=== PATIENT | female | born 1970 | race Caucasian/White ===

== ENCOUNTER 2020-10-22 21:16 | Emergency (ER) | payer OTHER, SELFPAY ==
--- NOTE | 2020-10-22 21:21 | XRR_ITS ---
PROCEDURE INFORMATION: Exam: XR Chest Exam date and time: 10/22/2020 9:21 PM Age: 50 years old Clinical indication: Cough and fever and shortness of breath; Additional info: SOB, cough, fever, covid + TECHNIQUE: Imaging protocol: XR of the chest. Views: 1 view. COMPARISON: MRI Cervical Spine w/o* [id number] 02/06/2019 11:38 AM FINDINGS: Lungs: Unremarkable. No consolidation. Pleural spaces: Unremarkable. No pleural effusion. No pneumothorax. Heart/Mediastinum: Unremarkable. No cardiomegaly. Bones/joints: Unremarkable. XR/XR chest 1V portable [id number] IMPRESSION: No acute findings.
--- NOTE | 2020-10-22 21:29 | ECG_ITS ---
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 Measurements Intervals [place] Rate: 106 P: 32 CT: 128 QRS: 11 QRSD: 81 T: 43 QT: 306 QTc: 407 Interpretive Statements SINUS TACHYCARDIA POSSIBLE LEFT ATRIAL ENLARGEMENT [-0.1mV P WAVE IN V1/V2] LOW QRS VOLTAGE IN PRECORDIAL LEADS [QRS DEFLECTION < 1.0 mV IN CHEST LEADS] Compared to ECG 02/21/2014 09:09:41 Low QRS voltage now present Sinus rhythm no longer present Electronically Signed On 10-23-2020 9:52:56 CDT by Kiki Davies M.D. [id number]
--- NOTE | 2020-10-22 21:31 | W.ED.SOB ---
HPI - SOB/Dyspnea General: Chief Complaint: COVID symptoms Stated Complaint: sob, covid positive Time Seen by Provider: 10/22/20 21:24 Source: patient Mode of arrival: ambulatory Limitations: no limitations History of Present Illness: HPI Narrative: 50-year-old female who had Covid 3 weeks ago and has passed her Covid. States that starting last 2 days she has developed fever headache cough and some shortness of breath. States that any exertion makes her dyspnea worse. She denies any chest pain. Subjective fevers no fever documented. Denies any vomiting or diarrhea. Patient is well-appearing here in no respiratory distress. Associated symptoms: Reports fever(s); Deny abdominal pain, chest pain, nausea or vomiting Review of Systems Const: Reports: fever(s) Eyes: Denies: blurry vision or eye discomfort ENMT: Denies: throat pain or dental pain Card: Denies: chest pain Resp: Reports: dyspnea and non-productive cough GI: Denies: abdominal pain, nausea, vomiting or diarrhea : Denies: dysuria Musc: Denies: neck pain or back pain Skin/Breast: Denies: rash Neuro: Reports: headache(s) Psych: Denies: depression Renzo/Lymph: Denies: easy bruising All/Imm: Denies: urticaria PFSH ED PFSH: Medical History Cervical disc disorder with myelopathy of mid-cervical region Surgical History H/O cervical spine surgery 11/20/2009 Dr. Manuel Montes De Oca: C4-C5, C5-C6 ACDFF Family History Mother Hypertension Diabetes Grandmother Hypertension Diabetes Social History Smoking and tobacco status: current every day smoker Alcohol intake: never Lives independently: Yes Household members: spouse Housing: House Marital status: service: No Current occupational status: employed Current occupation: [employer] in [employer] History of recent travel: No Physical Exam Const: COMMON NORMALS: no acute distress, patient oriented x3 and healthy appearing HENMT: COMMON NORMALS: normocephalic and atraumatic HEAD & SCALP: normocephalic and atraumatic Eye: COMMON NORMALS: Equal, round and reactive pupils present and EOMs intact bilaterally PUPIL: Yes Equal, round and reactive pupils present Neck/C-Spine: COMMON NORMALS: full ROM and supple Chest: COMMONS NORMALS: normal inspection of the chest and normal palpation of entire chest wall Resp: COMMON NORMALS: normal respiratory effort, No retractions, No use of accessory muscles and clear to auscultation bilaterally AUSCULTATION: clear to auscultation bilaterally Cardio: COMMON NORMALS: regular rate, regular rhythm and No murmurs present (Cardio) RATE: regular rate RHYTHM: regular rhythm GI: COMMON NORMALS: Normal to inspection, nondistended, normoactive bowel sounds present, Soft to palpation, non-tender and no masses PALPATION: Yes Soft to palpation Extremity: COMMON NORMALS: normal to inspection and full ROM Neuro: COMMON NORMALS: patient oriented x3, moves all extremities and no focal motor deficits Psych: COMMON NORMALS: mental status grossly normal, Normal thought process present and cooperative THOUGHT PROCESS: Normal thought process present Skin: COMMON NORMALS: no rashes or lesions noted and no wounds GENERAL SKIN EXAM: no rashes or lesions noted Course Vital Signs: Vital signs: Vital Signs Temperature 100.1 F H 10/22/20 23:27 Pulse Rate 105 H 10/22/20 23:46 Respiratory Rate 16 10/23/20 00:32 Blood Pressure 133/80 10/23/20 00:32 Pulse Oximetry 96 10/23/20 00:32 MDM - SOB/Dyspnea MDM Narrative: Medical decision making narrative: Patient presents here with a post Covid pneumonitis. Could still be viral versus bacterial. We will start her on doxycycline. She has an inhaler at home. She is well-appearing here and is not hypoxic. She is stable for discharge. CT shows no signs of pulmonary Alloy. Patient prescribed doxycycline and is to follow-up with her PCP and return if worsening. She understands agrees this plan. Lab Data: Labs: Lab Results 10/22/20 10/22/20 10/22/20 Range/Units 22:00 22:00 22:00 WBC 14.4 H (4.0-10.0) 10^3/ uL RBC 5.47 H (4.1-5.3) 10^6/u L Hgb 15.9 H (11.5-15.3) g/dL Hct 46.7 (37.0-47.0) % MCV 85.4 (81-99) fL MCH 29.1 (28.0-34.0) pg MCHC 34.0 (30.0-36.0) g/dL RDW 12.4 (12.1-15.1) % Plt Count 262 (130-400) 10^3/c mm MPV 9.1 (7.4-10.4) fL Neut % (Auto) 83.7 % Lymph % (Auto) 8.9 % Luna % (Auto) 4.8 % Eos % (Auto) 0.1 % Baso % (Auto) 0.2 % Neut # (Auto) 12.10 H (1.8-7.7) 10^3/u L Lymph # (Auto) 1.3 (0.8-4.8) 10^3/u L Luna # (Auto) 0.7 (0.2-0.9) 10^3/u L Eos # (Auto) 0.0 (0.0-0.8) 10^3/u L Baso # (Auto) 0.0 (0.0-0.1) 10^3/u L Nucleated RBC % (a uto) 0 % Nucleated RBCs # 0.0 /100WBC D-Dimer 0.74 H (0-0.59) ug/mIFE U Sodium 131 L (136-145) mmol/L Potassium 4.3 (3.5-5.1) mmol/L Chloride 92 L (98-107) mmol/L Carbon Dioxide 25 (22-29) mmol/L Anion Gap 18.3 (5-19) BUN 11 (6-20) mg/dL Creatinine 0.5 (0.5-0.9) mg/dL GFR Calculation 131.1 H (90-130) mL/min Glucose 187 H (65-115) mg/dL Calculated Osmolal ity 276 L (285-295) mOsm/k g Lactic Acid (0.5-2.2) mmol/L Calcium 8.3 L (8.5-10.5) mg/dL Total Bilirubin 0.4 (0.15-1.2) mg/dL AST 18 (0-32) U/L ALT 43 H (0-33) U/L Alkaline Phosphata se 91 (35-105) IU/L C-Reactive Protein 109.7 H (0.0-4.9) mg/L NT-Pro-B Natriuret Pep 223 H (0-125) pg/mL Total Protein 5.6 L (6.6-8.7) g/dL Albumin 3.6 (3.5-5.2) g/dL Globulin 2.0 (1.3-4.6) g/dL 10/22/20 Range/Units 22:00 WBC (4.0-10.0) 10^3/ uL RBC (4.1-5.3) 10^6/u L Hgb (11.5-15.3) g/dL Hct (37.0-47.0) % MCV (81-99) fL MCH (28.0-34.0) pg MCHC (30.0-36.0) g/dL RDW (12.1-15.1) % Plt Count (130-400) 10^3/c mm MPV (7.4-10.4) fL Neut % (Auto) % Lymph % (Auto) % Luna % (Auto) % Eos % (Auto) % Baso % (Auto) % Neut # (Auto) (1.8-7.7) 10^3/u L Lymph # (Auto) (0.8-4.8) 10^3/u L Luna # (Auto) (0.2-0.9) 10^3/u L Eos # (Auto) (0.0-0.8) 10^3/u L Baso # (Auto) (0.0-0.1) 10^3/u L Nucleated RBC % (a uto) % Nucleated RBCs # /100WBC D-Dimer (0-0.59) ug/mIFE U Sodium (136-145) mmol/L Potassium (3.5-5.1) mmol/L Chloride (98-107) mmol/L Carbon Dioxide (22-29) mmol/L Anion Gap (5-19) BUN (6-20) mg/dL Creatinine (0.5-0.9) mg/dL GFR Calculation (90-130) mL/min Glucose (65-115) mg/dL Calculated Osmolal ity (285-295) mOsm/k g Lactic Acid 1.9 (0.5-2.2) mmol/L Calcium (8.5-10.5) mg/dL Total Bilirubin (0.15-1.2) mg/dL AST (0-32) U/L ALT (0-33) U/L Alkaline Phosphata se (35-105) IU/L C-Reactive Protein (0.0-4.9) mg/L NT-Pro-B Natriuret Pep (0-125) pg/mL Total Protein (6.6-8.7) g/dL Albumin (3.5-5.2) g/dL Globulin (1.3-4.6) g/dL Imaging Data^: CT Chest: Attestation: I personally reviewed and interpreted this imaging study as follows: Radiologist's impression: [address] [place] [id number] Scan Report Signed Patient: Sarah Grullon Unit #: [id number] : 1970 Age/Sex: 50 / F ADM Date: 10/22/20 Loc: ER Room/Bed: Attending Dr: Ordering Provider/Ordering MD: Mac Smallwood MD Date of Service: 10/22/20 Procedure(s): CT angio chest PE protcl [id number] Accession Number(s): [id number] Report Number: [id number] PROCEDURE INFORMATION: Exam: CTA Chest With Contrast Exam date and time: 10/22/2020 10:59 PM Age: 50 years old Clinical indication: Cough and shortness of breath; Additional info: SOB, cough, covid + TECHNIQUE: Imaging protocol: Computed tomographic angiography of the chest with contrast. 3D rendering (Not supervised by radiologist): MIP and/or 3D reconstructed images were created by the technologist. Radiation optimization: All CT scans at this facility use at least one of these dose optimization techniques: automated exposure control; mA and/or kV adjustment per patient size (includes targeted exams where dose is matched to clinical indication); or iterative reconstruction. Contrast material: OMNI 350; Contrast volume: 111 ml; Contrast route: INTRAVENOUS (IV); COMPARISON: CR (CHEST, ) 10/22/2020 10:36 PM RADIATION DOSE METRICS: Total DLP (mGy-cm): 1442.97 FINDINGS: Limitations: Suboptimal/less than robust opacification the pulmonary arterial tree. Pulmonary arteries: Evaluation of the pulmonary arteries is limited due to the poor contrast and some areas of streak artifact, especially the distal pulmonary arteries. No large or central pulmonary emboli are demonstrated on this examination. Aorta: There is no thoracic aortic aneurysm or dissection. Lungs: There are some patchy rounded ground-glass opacities and consolidations in both lungs, more on the left than on the right and mostly sparing the upper lungs consistent with the given clinical history of COVID-19 infection. Pleural spaces: Unremarkable. No pneumothorax. No pleural effusion. Heart: Unremarkable. No cardiomegaly. No pericardial effusion. Lymph nodes: There are small paratracheal lymph nodes but no adenopathy. There is some minimal right hilar adenopathy. Bones/joints: Unremarkable. No acute fracture. Soft tissues: Unremarkable. CT/CT angio chest PE protcl [id number] IMPRESSION: 1. Limited study due to timing of contrast. 2. No gross evidence of pulmonary emboli. 3. Commonly reported imaging features of COVID-19 pneumonia are present. Other processes such as influenza pneumonia and organizing pneumonia, as can be seen with drug toxicity and connective tissue disease, can cause a similar imaging pattern. Radiation Dose CTDIVOL = (mGy): DLP = 1442.97 (mGy-cm) Dictated By: Owen Taylor Signed By: Owen Taylor Signed Date/Time: 10/23/2040 DD/ EKG Data^: EKG 1: Attestation: I personally reviewed and interpreted this EKG as follows: EKG Interpretation Date: 10/22/20 EKG interpretation time: 21:42 Interpretation: sinus tach hr [address] or t wave abnormalities qrs 81 qtc 368 Discharge Plan Discharge Patient Disposition: Home Clinical Impression: COVID-19, Pneumonia Condition: Stable Prescriptions: New doxycycline hyclate 100 mg tablet 100 mg PO BID 7 Days Qty: 14 RF: 0 No Action metformin 500 mg tablet extended release 24 hr 500 mg PO BID RF: 0 metoprolol tartrate 100 mg tablet 100 mg PO DAILY RF: 0 amlodipine-benazepril 2.5-10 mg capsule 1 cap PO DAILY RF: 0 hydrochlorothiazide 12.5 mg tablet 12.5 mg PO DAILY RF: 0 levocetirizine 5 mg tablet 5 mg PO BID RF: 0 montelukast 10 mg tablet 10 mg PO DAILY RF: 0 ranitidine HCl 150 mg capsule 150 mg PO BID RF: 0 Discharge Orders: Discharge ED (Routine); Ordered 10/23/20 Ordered By: Mac Smallwood Referrals: Nora Fenton MD [Primary Care Provider] - 1-3 days Discharge Diet: Advance as tolerated Discharge Activity: Resume usual activity Patient Instructions: Pneumonia (ED) Coding Level of Care Code ED 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
[2020-10-22 21:32] VITALS: BP 149/91; PULSE 106; RESP 19; TEMP 37.2; O2SAT 95; BMI 33.9
[2020-10-22 21:36] VITALS: O2SAT 95
[2020-10-22] MEDS: ipratropium-albuterol 3 mL Neb INHALATION (22:00)
[2020-10-22 22:15] VITALS: RESP 16
[2020-10-22] MEDS: morphine 4 mg/mL SDV 1 mL IVP (22:15)
[2020-10-22] MEDS: ondansetron 2 mg/ML SDV 2 mL 4 MG IVP (22:27)
[2020-10-22 22:30] LABS: Basophils % 0.2 %; Eosinophils % 0.1 %; Hematocrit 46.7 % (37.0-47.0); Hemoglobin 15.9 g/dL (11.5-15.3); Lymphocytes # 1.3 10^3/uL (0.8-4.8); Lymphocytes % 8.9 %; Mean Corpuscular Hemoglobin 29.1 pg (28.0-34.0); Mean Corpuscular Volume 85.4 fL (81-99); Mean Platelet Volume 9.1 fL (7.4-10.4); Monocytes # 0.7 10^3/uL (0.2-0.9); Monocytes % 4.8 %; Neutrophils % 83.7 %; Nucleated Red Blood Cells % 0 %; Platelet Count 262 10^3/cmm (130-400); Red Blood Count 5.47 10^6/uL (4.1-5.3); Red Cell Distribution Width 12.4 % (12.1-15.1); White Blood Count 14.4 10^3/uL (4.0-10.0)
[2020-10-22 22:53] LABS: D Dimer 0.74 ug/mIFEU (0-0.59)
[2020-10-22 22:55] LABS: Lactic Sepsis W/Reflex 1.9 mmol/L (0.5-2.2)
--- NOTE | 2020-10-22 22:59 | CTR_ITS ---
PROCEDURE INFORMATION: Exam: CTA Chest With Contrast Exam date and time: 10/22/2020 10:59 PM Age: 50 years old Clinical indication: Cough and shortness of breath; Additional info: SOB, cough, covid + TECHNIQUE: Imaging protocol: Computed tomographic angiography of the chest with contrast. 3D rendering (Not supervised by radiologist): MIP and/or 3D reconstructed images were created by the technologist. Radiation optimization: All CT scans at this facility use at least one of these dose optimization techniques: automated exposure control; mA and/or kV adjustment per patient size (includes targeted exams where dose is matched to clinical indication); or iterative reconstruction. Contrast material: OMNI 350; Contrast volume: 111 ml; Contrast route: INTRAVENOUS (IV); COMPARISON: CR (CHEST, ) 10/22/2020 10:36 PM RADIATION DOSE METRICS: Total DLP (mGy-cm): 1442.97 FINDINGS: Limitations: Suboptimal/less than robust opacification the pulmonary arterial tree. Pulmonary arteries: Evaluation of the pulmonary arteries is limited due to the poor contrast and some areas of streak artifact, especially the distal pulmonary arteries. No large or central pulmonary emboli are demonstrated on this examination. Aorta: There is no thoracic aortic aneurysm or dissection. Lungs: There are some patchy rounded ground-glass opacities and consolidations in both lungs, more on the left than on the right and mostly sparing the upper lungs consistent with the given clinical history of COVID-19 infection. Pleural spaces: Unremarkable. No pneumothorax. No pleural effusion. Heart: Unremarkable. No cardiomegaly. No pericardial effusion. Lymph nodes: There are small paratracheal lymph nodes but no adenopathy. There is some minimal right hilar adenopathy. Bones/joints: Unremarkable. No acute fracture. Soft tissues: Unremarkable. CT/CT angio chest PE protcl [id number] IMPRESSION: 1. Limited study due to timing of contrast. 2. No gross evidence of pulmonary emboli. 3. Commonly reported imaging features of COVID-19 pneumonia are present. Other processes such as influenza pneumonia and organizing pneumonia, as can be seen with drug toxicity and connective tissue disease, can cause a similar imaging pattern. Radiation Dose CTDIVOL = (mGy): DLP = 1442.97 (mGy-cm)
[2020-10-22 23:02] LABS: Alanine Aminotransferase 43 U/L (0-33); Albumin Level 3.6 g/dL (3.5-5.2); Alkaline Phosphatase 91 IU/L (35-105); Anion Gap 18.3 (5-19); Aspartate Amino Transferase 18 U/L (0-32); Blood Urea Nitrogen 11 mg/dL (6-20); C Reactive Protein 109.7 mg/L (0.0-4.9); Calcium 8.3 mg/dL (8.5-10.5); Carbon Dioxide 25 mmol/L (22-29); Chloride 92 mmol/L (98-107); Glomerular Filtration Rate 131.1 mL/min (90-130); Glucose 187 mg/dL (65-115); Osmolality Calculated 276 mOsm/kg (285-295); Potassium 4.3 mmol/L (3.5-5.1); Sodium 131 mmol/L (136-145); Total Bilirubin 0.4 mg/dL (0.15-1.2); Total Protein 5.6 g/dL (6.6-8.7)
[2020-10-22 23:06] LABS: NT Pro B Type Natriuretic Pept 223 pg/mL (0-125)
[2020-10-22 23:27] VITALS: BP 145/92; PULSE 116; RESP 18; TEMP 37.8
[2020-10-22] MEDS: acetaminophen 500 mg Tablet 1000 MG PO (23:45)
[2020-10-22 23:46] VITALS: PULSE 105; RESP 15; O2SAT 96
[2020-10-22] MEDS: iohexol 350 mg/mL 100 mL Btl IV ×2 (23:56→23:59)
[2020-10-23 00:32] VITALS: BP 133/80; RESP 16; O2SAT 96
[2020-10-23 01:52] VITALS: BP 148/76; PULSE 97; RESP 18; TEMP 37.3; O2SAT 97
== END 2020-10-23 01:55 | disposition home or self-care (01) ==
PROVIDERS: Emergency Provider Emergency Medicine; PCP Family Medicine
DX: U07.1 COVID-19 (principal); J12.82 Pneumonia due to coronavirus disease 2019; Z79.84 Long term (current) use of oral hypoglycemic drugs; F17.210 Nicotine dependence, cigarettes, uncomplicated
CPT/HCPCS: 71045; 71275; 80053; 83605; 83880; 85025; 85378; 86140; 87040; 93005; 94640; 96374; 96375; 99284; J2270; J2405; Q9967

== ENCOUNTER 2020-10-28 10:27 | Emergency (ER) | payer OTHER, SELFPAY ==
--- NOTE | 2020-10-28 10:34 | XRR_ITS ---
PROCEDURE INFORMATION: Exam: XR Chest Exam date and time: 10/28/2020 10:34 AM Age: 50 years old Clinical indication: Shortness of breath; Additional info: SOB covid pos TECHNIQUE: Imaging protocol: XR of the chest. Views: 1 view. COMPARISON: CR (CHEST, ) 10/22/2020 10:36 PM FINDINGS: Lungs: Bilateral patchy hazy interstitial pulmonary infiltrates have developed since the previous chest x-ray which are consistent with an interstitial viral pneumonia. Pleural spaces: Unremarkable. No pleural effusion. No pneumothorax. Heart/Mediastinum: Unremarkable. No cardiomegaly. Bones/joints: Unremarkable. XR/XR chest 1V portable [id number] IMPRESSION: New bilateral interstitial pulmonary infiltrates have developed which are consistent with interstitial viral pneumonia.
[2020-10-28 11:16] VITALS: BP 125/84; PULSE 85; RESP 16; TEMP 37.2; O2SAT 94
--- NOTE | 2020-10-28 13:12 | ED_ITS ---
HPI - COVID General: Chief Complaint: COVID symptoms Stated Complaint: covid +, SOB,Headahces, cough /low 02 Time Seen by Provider: 10/28/20 12:06 Triage information: No fever, cough or shortness of breath . No known COVID + exposure last 14 days History of Present Illness: COVID 19 common symptoms: positive fever(s), dyspnea, fatigue, body aches and headache(s) COVID Results: No Data to Display Review of Systems General: Reports: 10 or more systems reviewed and unremarkable except in HPI and below Const: Reports: fever(s), body aches, change in appetite and fatigue Resp: Reports: dyspnea Neuro: Reports: headache(s) PFS ED PFSH: Medical History Cervical disc disorder with myelopathy of mid-cervical region Surgical History H/O cervical spine surgery 11/20/2009 Dr. Manuel Montes De Oca: C4-C5, C5-C6 ACDFF Family History Mother Hypertension Diabetes Grandmother Hypertension Diabetes Social History Smoking and tobacco status: current every day smoker Alcohol intake: never Lives independently: Yes Household members: spouse Housing: House Marital status: service: No Current occupational status: employed Current occupation: [employer] in [employer] History of recent travel: No Physical Exam Const: COMMON NORMALS: no acute distress, patient oriented x3, no limitations and alert GENERAL APPEARANCE: cooperative and comfortable ORIENTATION/CONSCIOUSNESS: Yes awake, Yes oriented to person, Yes oriented to place and Yes oriented to time HENMT: COMMON NORMALS: normocephalic, atraumatic, external ears normal, EAC's normal, TM's normal bilaterally and Normal external nose present HEAD & SCALP: normal to inspection, normocephalic and atraumatic FACE & SINUS: normal facial exam, sinuses nontender and face symmetric NOSE: Normal external nose present, Normal nares present and No nasal discharge present EXTERNAL EAR: Yes external ears normal EXTERNAL AUDITORY CANAL: EAC's normal TYMPANIC MEMBRANE: TM's normal bilaterally MOUTH: Normal oral and palatal mucosa present, lip normal and tongue normal THROAT: posterior oropharynx normal, tonsils normal and uvula midline Eye: COMMON NORMALS: Equal, round and reactive pupils present, EOMs intact bilaterally and conjunctivae normal GENERAL EYE: appearance normal, both eyes and all related structures and normal light reflex EYELID: eyelids normal CONJUNCTIVA: Yes conjunctivae normal PUPIL: Yes Equal, round and reactive pupils present EOM: Yes EOM abnormal DIRECT OPHTHALMOSCOPY: Yes normal light reflex Neck/C-Spine: COMMON NORMALS: full ROM, no lymphadenopathy, supple, no meningeal signs, no JVD and Thyroid normal GENERAL: Yes normal visual inspection THYROID: Thyroid normal CERVICAL SPINE: Yes cervical ROM normal and Yes normal cervical lordosis Lymph: LYMPHATIC: no lymphadenopathy noted Chest: COMMONS NORMALS: normal inspection of the chest and normal palpation of entire chest wall Resp: COMMON NORMALS: normal respiratory effort, No retractions and clear to auscultation bilaterally AUSCULTATION: clear to auscultation bilaterally Cardio: COMMON NORMALS: no JVD, regular rate, regular rhythm, S1 normal heart sound present, S2 normal heart sound present, No gallops present (Cardio), No clicks present (Cardio), No murmurs present (Cardio), No rub (Cardio) and Peripheral pulses 2+ throughout RATE: regular rate RHYTHM: regular rhythm HEART SOUNDS: S1 normal heart sound present and S2 normal heart sound present PERIPHERAL PULSES: Peripheral pulses 2+ throughout GI: COMMON NORMALS: Normal to inspection, nondistended, normoactive bowel sounds present, Soft to palpation, non-tender and no masses PALPATION: Yes Soft to palpation : COMMON NORMALS: Yes no CVA tenderness and Yes normal external appearance BLADDER/KIDNEY EXAM: Yes no CVA tenderness Back/Pelvis: COMMON NORMALS: no CVA tenderness, thoracic and lumbar spine normal to inspection, no thoracic nor lumbar tenderness and thoraco-lumbar ROM normal Extremity: COMMON NORMALS: normal to inspection, full ROM, capillary refill normal, no joint enlargement, no clubbing, cyanosis or edema, no calf tenderness and no pedal edema GENERAL: Yes normal exam except as noted Neuro: COMMON NORMALS: patient oriented x3, moves all extremities, no focal motor deficits, no sensory deficits noted and gait normal SENSORIUM/ORIENTATION: Yes alert, Yes oriented to person, Yes oriented to place and Yes oriented to time MENINGEAL SIGNS: Yes no meningeal signs Psych: COMMON NORMALS: mental status grossly normal, Normal thought process present, cooperative, normal affect, speech normal and activity/motor behavior normal SPEECH: Yes normal speech THOUGHT PROCESS: Normal thought process present Skin: COMMON NORMALS: no rashes or lesions noted, no wounds and turgor normal GENERAL SKIN EXAM: no rashes or lesions noted and turgor normal Course ED course: Pt presents to ER with worsening of symptoms. She is was diagnosed with covid over a month ago but states she is easily fatigued, SOB, and does not do well when up and walking around. She was treated for pneumonia last week and has completed her oral antibx and steroids. Reevaluation(s): Reevaluation #1: Pt 92% while sitting, she got down to 86% on her oxygen evaluation. Her xray is consistent with viral pneumonia as well. 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 We will however do a longer duration of antibiotics and a repeat of her steroids for a short term. Time: 13:17 Vital Signs: Vital signs: Vital Signs Temperature 98.9 F 10/28/20 11:16 Pulse Rate 85 10/28/20 11:16 Respiratory Rate 16 10/28/20 11:16 Blood Pressure 125/84 10/28/20 11:16 Pulse Oximetry 94 10/28/20 11:16 MDM - COVID Lab Data: Labs: [facility] [address] [facility] [place] [address] XRay Report Signed Patient: Sarah Grullon Unit #: [id number] : 1970 Age/Sex: 50 / F ADM Date: 10/28/20 Loc: ER Room/Bed: Attending Dr: Ordering Provider/Ordering MD: Winsome Bertrand NP Date of Service: 10/28/20 Procedure(s): XR chest 1V portable [id number] Accession Number(s): [id number] Report Number: [id number] PROCEDURE INFORMATION: Exam: XR Chest Exam date and time: 10/28/2020 10:34 AM Age: 50 years old Clinical indication: Shortness of breath; Additional info: SOB covid pos TECHNIQUE: Imaging protocol: XR of the chest. Views: 1 view. COMPARISON: CR (CHEST, ) 10/22/2020 10:36 PM FINDINGS: Lungs: Bilateral patchy hazy interstitial pulmonary infiltrates have developed since the previous chest x-ray which are consistent with an interstitial viral pneumonia. Pleural spaces: Unremarkable. No pleural effusion. No pneumothorax. Heart/Mediastinum: Unremarkable. No cardiomegaly. Bones/joints: Unremarkable. XR/XR chest 1V portable [id number] IMPRESSION: New bilateral interstitial pulmonary infiltrates have developed which are consistent with interstitial viral pneumonia. Dictated By: Erasmo Rosado Signed By: Erasmo Rosado Signed Date/Time: 10/28/20 110 DD/ 1107 COVID Results: No Data to Display Discharge Plan Discharge Condition: Stable Prescriptions: New dexamethasone 6 mg tablet 6 mg PO DAILY Qty: 6 RF: 0 azithromycin [Zithromax TRI-ALEXA] 500 mg tablet See Rx Instructions .ROUTE .COMPLEX Qty: 3 RF: 0 vitamin D3-vitamin K2 250 mcg (10,000 unit)-45 mcg capsule 1 cap PO DAILY Qty: 30 RF: 0 melatonin 10 mg capsule 10 mg PO DAILY Qty: 30 RF: 0 No Action metformin 500 mg tablet extended release 24 hr 500 mg PO BID RF: 0 metoprolol tartrate 100 mg tablet 100 mg PO DAILY RF: 0 amlodipine-benazepril 2.5-10 mg capsule 1 cap PO DAILY RF: 0 hydrochlorothiazide 12.5 mg tablet 12.5 mg PO DAILY RF: 0 levocetirizine 5 mg tablet 5 mg PO BID RF: 0 montelukast 10 mg tablet 10 mg PO DAILY RF: 0 ranitidine HCl 150 mg capsule 150 mg PO BID RF: 0 doxycycline hyclate 100 mg tablet 100 mg PO BID 7 Days Qty: 14 RF: 0 Discharge Orders: Discharge ED (Routine); Ordered 10/28/20 Ordered By: Winsome Bertrand Referrals: Nora Fenton MD [Primary Care Provider] - Discharge Diet: Advance as tolerated Discharge Activity: Increase activity as tolerated Activity Restrictions/Additional Instructions: Consider speaking to Dr. Fenton about experimental treatment with Ivermectin for 5 days for post covid long haulers syndrome. Decrease dairy, gluten, and prepackaged foods. Try to do deep breathing exercises several times per day. Connect with nature and have a strong since of community-family, friends, or religion. Take time to eat clean, organic foods. Inflammation results in disease. Covid 19 is a result of inflammation. By taming the fire we can stop fueling the inflammation. OTC Quercetin 250mg daily OTC Aspirin 81mg daily OTC Vitamin C 2000mg daily Coding Level of Care Code ED Engineering Design Supervisor for Tien Hung
[2020-10-28 13:13] VITALS: O2SAT 87; O2SAT 93; O2SAT 94
[2020-10-28 15:18] VITALS: BP 129/86; PULSE 79; RESP 18; O2SAT 95
== END 2020-10-28 15:22 | disposition home or self-care (01) ==
PROVIDERS: Emergency Provider Nurse Practitioner Family; PCP Family Medicine
DX: R53.83 Other fatigue (principal); R06.02 Shortness of breath; F17.200 Nicotine dependence, unspecified, uncomplicated; Z86.16 Personal history of COVID-19
CPT/HCPCS: 71045; 99282

== ENCOUNTER 2022-05-19 08:59 | Outpatient (CLI) | payer OTHER, SELFPAY ==
--- NOTE | 2022-05-19 09:10 | MM_ITS ---
WS: [id number] SCREENING DIGITAL BREAST TOMOSYNTHESIS MAMMOGRAM WITH CAD HISTORY: SCREENING COMPARISON: None available. Bilateral CC and MLO with tomosynthesis and synthetic mammography submitted. Computer aided detection analyzed. Breast composition: There are scattered areas of fibroglandular density. Asymmetry measuring 8 x 7 mm seen on the lateral LEFT breast. May be fibroglandular superimposed tissue. Note corresponding findi ng on the CC projection. There are benign calcifications in the RIGHT breast. MM/[place] [id number] IMPRESSION: BI-RADS: 0-Incomplete: Need additional imaging evaluation FOLLOW UP: Need Additional Imaging LEFT breast: Spot compression views (MLO). True ML. Ultrasound to follow if abn ormality persists.
== END 2022-05-19 09:00 | disposition home or self-care (01) ==
LOC: RAD 09:02
PROVIDERS: PCP Family Medicine; Visit Provider Family Medicine
DX: Z12.31 Encounter for screening mammogram for malignant neoplasm of breast (principal)
CPT/HCPCS: 77063; 77067

== ENCOUNTER 2022-06-23 13:03 | Outpatient (CLI) | payer OTHER, SELFPAY ==
--- NOTE | 2022-06-23 13:28 | MM_ITS ---
WS: [id number] ADDITIONAL VIEWS LEFT MAMMOGRAM with tomosynthesis. LEFT BREAST ULTRASOUND HISTORY: ABNORMAL MAMMO COMPARISON: 05/19/2022 LEFT MAMMOGRAM: Spot compression views and true ML with tomosynthesis and sympathetic mammography. Persistent 10 mm asymmetry upper-outer quadrant LEFT breast near 1-2 o'clock. Posterior depth. This i s noted only on the MLO and ML projection. Ultrasound to be performed. LEFT BREAST ULTRASOUND 2-D and color Doppler imaging submitted. No abnormality upper outer quadrant of the LEFT breast. HISTORY: ABNORMAL MAMMO COMPARISON: 05/19/2022 Left craniocaudal, mediolateral oblique and medial lateral images are submitted with tomosynthesis an carrol HUMPHREYS. Computer aided detection performed. Breast composition: There are scattered areas of fibroglandular density. No suspicious masses or calc ifications. No architectural distortion. Very similar fibroglandular pattern when compared to the mos t recent exam. MM/[id number] IMPRESSION: BI-RADS: 3-Probably Benign FOLLOW UP: 6 Month Follow-up DIAGNOSTIC LEFT DIGITAL BREAST TOMOSYNTHESIS WITH CAD IMPRESSION: BI-RADS: 3-Probably Benign FOLLOW UP: 6 Month Follow-up Recommendation: Diagnostic LEFT mammogram in 6 months and possible ultrasound. The asymmetry persists in the lateral projection but on the CC projections ther e is normal fibroglandular tissue. I suspect this is superimposed fibroglandula r densities in the lateral projections.
== END 2022-06-23 13:04 | disposition home or self-care (01) ==
PROVIDERS: PCP Family Medicine; Visit Provider Family Medicine
DX: N63.0 Unspecified lump in unspecified breast (principal)
CPT/HCPCS: 76642; 77061; G0279

== ENCOUNTER 2023-01-25 08:30 | Outpatient (CLI) | payer OTHER, SELFPAY ==
--- NOTE | 2023-01-25 08:32 | MM_ITS ---
WS: [id number] DIAGNOSTIC LEFT DIGITAL TOMOSYNTHESIS MAMMOGRAPHY WITH CAD. LEFT BREAST ULTRASOUND, LIMITED. HISTORY: 6-month follow-up asymmetry upper outer quadrant LEFT breast. COMPARISON: 06/23/2022, 05/19/2022 Technique: CC, MLO and ML views. Spot compression LEFT CC and MLO. Breast composition: There are scattered areas of fibroglandular density. The area of asymmetry persis t in the superior lateral LEFT breast measuring up to 10 mm. On the spot compression views this area becomes less consolidated and is less suspicious. This area is not definitely visualized on the CC pr ojection. Attempted exaggerated LEFT lateral cc views were also indeterminate. LEFT breast ultrasound: LEFT breast at 1:00, 6 cm from the nipple demonstrates a very vague hypoechoic mass or asymmetry bhavna uring 10 x 6 x 10 mm. This may correspond to the mammographic abnormality as it would be the correct size and location. There is no shadowing or increased vascularity. IMPRESSION: MM/[place] [id number] BI-RADS: 3-Probably Benign FOLLOW UP: 6 Month Follow-up Patient to return in 6 months for annual mammogram. At that time additional vie ws of the LEFT breast asymmetry and possible ultrasound should be obtained. I d id discuss this finding and follow-up with the patient.
== END 2023-01-25 08:31 | disposition home or self-care (01) ==
LOC: RAD 08:30
PROVIDERS: PCP Family Medicine; Visit Provider Family Medicine
DX: R92.8 Other abnormal and inconclusive findings on diagnostic imaging of breast (principal)
CPT/HCPCS: 76642; 77061; G0279

== ENCOUNTER 2023-08-23 08:52 | Outpatient (CLI) | payer OTHER, SELFPAY ==
--- NOTE | 2023-08-23 09:02 | MM_ITS ---
WS: [id number] DIAGNOSTIC BILATERAL DIGITAL BREAST TOMOSYNTHESIS MAMMOGRAPHY WITH CAD LEFT breast ultrasound, limited HISTORY: ABNORMAL MAMMOGRAM COMPARISON: 01/25/2023, 06/23/2022 TECHNIQUE: Bilateral craniocaudad, mediolateral oblique, and mediolateral views are submitted with to mosynthesis and SM. Spot compression LEFT CC and MLO. Computer aided detection utilized. Breast composition: There are scattered areas of fibroglandular density. The asymmetry is slightly sm aller than on the prior most recent mammogram of 01/25/2023 in the upper outer quadrant of the LEFT br east. The asymmetries does not completely resolves with additional imaging. Benign calcifications in each breast. LEFT breast ultrasound, limited. No suspicious masses or calcifications are identified. The hypoechoic area previously described at 1: 00 is no longer identified. There is no distortion or shadowing. Benign lymph node at 3:00. MM/[place] [id number] IMPRESSION: BI-RADS: 2-Benign FOLLOW UP: 1 Year Follow-up Improving asymmetry upper outer quadrant of the LEFT breast is probably in norm al patch of fibroglandular tissue. Nearly completely resolves with additional i maging and there is no ultrasound abnormality.
== END 2023-08-23 08:53 | disposition home or self-care (01) ==
LOC: RAD 08:53
PROVIDERS: PCP Family Medicine; Visit Provider Family Medicine
DX: R92.8 Other abnormal and inconclusive findings on diagnostic imaging of breast (principal)
CPT/HCPCS: 76642; 77062; G0279

== ENCOUNTER 2025-01-03 09:34 | Outpatient (CLI) | payer OTHER, SELFPAY ==
--- NOTE | 2025-01-03 09:39 | MM_ITS ---
WS: [id number] BILATERAL SCREENING DIGITAL TOMOSYNTHESIS MAMMOGRAM WITH CAD HISTORY: ANNUAL SCREENING COMPARISON: 01/25/2023, 05/19/2022, 08/23/2023 Bilateral CC and MLO views with tomosynthesis and synthetic mammography submitted. Computer aided detection analyzed. Breast composition: The breasts are heterogeneously dense, which may obscure small masses. No suspicious masses, microcalcifications or architectural distortion. Asymmetry in the upper outer quadrant of the LEFT breast is reidentified and stable over several years. There are a few benign calcifications scattered throughout each breast. No area of architectural distortion. MM/MM scr tomosynthesis [id number] IMPRESSION: BI-RADS: 2 - Benign FOLLOW UP: 1 Year Follow-up
== END 2025-01-03 09:35 | disposition home or self-care (01) ==
LOC: RAD 09:34
PROVIDERS: PCP Family Medicine; Visit Provider Family Medicine
DX: Z12.31 Encounter for screening mammogram for malignant neoplasm of breast (principal); R92.333 Mammographic heterogeneous density, bilateral breasts; N64.89 Other specified disorders of breast; R92.1 Mammographic calcification found on diagnostic imaging of breast
CPT/HCPCS: 77063; 77067